=== PATIENT | female | born 1970 | race Caucasian/White ===

== ENCOUNTER → 2017-07-01 | Outpatient (CLI) | payer OTHER ==
[~2017-07-01] MED LIST: BUPR-86 PO; BUSP10TA PO; GABA-826 PO; GABA300C10 PO; HYDR50TA13 PO; INSU100V13 SQ-INSULIN; KETO10TA PO; LEVO200T PO; LEVO200T5 PO; LEVO75TA PO; LISI-167 PO; MECL25TA2 PO; METF10002 PO; MULT-717 PO; SIMV40TA3 PO; SITA100T PO
== END | disposition home or self-care (01) ==
LOC: CFH 11:14
PROVIDERS: ATTEND Family Medicine
DX: Z12.31 Encounter for screening mammogram for malignant neoplasm of breast (principal); Z80.3 Family history of malignant neoplasm of breast
CPT/HCPCS: G0202

== ENCOUNTER 2017-08-02 09:40 | Emergency (ER) | payer OTHER ==
[~2017-08-02] VITALS: Ht 165.1 cm; Wt 115.1 kg
[2017-08-02 13:21] VITALS: BP 122/73
== END 2017-08-02 13:25 | disposition home or self-care (01) ==
LOC: ED 12:22
DX: S13.4XXA Sprain of ligaments of cervical spine, initial encounter (principal); E03.9 Hypothyroidism, unspecified; E78.5 Hyperlipidemia, unspecified; F41.9 Anxiety disorder, unspecified; G47.30 Sleep apnea, unspecified; I10 Essential (primary) hypertension; K21.9 Gastro-esophageal reflux disease without esophagitis; Z90.710 Acquired absence of both cervix and uterus; V89.2XXA Person injured in unspecified motor-vehicle accident, traffic, initial encounter; Y93.89 Activity, other specified; Y92.410 Unspecified street and highway as the place of occurrence of the external cause; Y99.8 Other external cause status
CPT/HCPCS: 72020; 72072; 72110; 72125; 99284

== ENCOUNTER 2017-08-05 15:42 | Emergency (ER) | payer OTHER ==
[~2017-08-05] VITALS: Ht 167.6 cm; Wt 116.4 kg
[2017-08-05 15:49] VITALS: BP 139/88
[2017-08-05] MEDS ORDERED: DIAZEPAM 5 MG TABLET PO ONE (16:30)
[2017-08-05] MEDS ORDERED: ONDANSETRON ODT 4 MG PO ONE (16:30)
[2017-08-05] MEDS ORDERED: OXYcodone/APAP 5/325MG TABLET PO ONE (16:30)
[2017-08-05] MEDS ORDERED: DIAZEPAM 5 MG TABLET ONE (16:32)
[2017-08-05] MEDS ORDERED: ONDANSETRON ODT 4 MG ONE (16:33)
[2017-08-05] MEDS ORDERED: OXYcodone/APAP 5/325MG TABLET ONE (16:33)
== END 2017-08-05 17:58 | disposition home or self-care (01) ==
LOC: ED 17:52
DX: S39.012A Strain of muscle, fascia and tendon of lower back, initial encounter (principal); M51.36 Other intervertebral disc degeneration, lumbar region; I10 Essential (primary) hypertension; E03.9 Hypothyroidism, unspecified; E78.5 Hyperlipidemia, unspecified; E11.9 Type 2 diabetes mellitus without complications; K21.9 Gastro-esophageal reflux disease without esophagitis; F41.9 Anxiety disorder, unspecified
CPT/HCPCS: 72131; 72220; 99284; J7512; Q0162

== ENCOUNTER 2017-12-08 07:46 | Inpatient (IN) | payer OTHER ==
[~2017-12-08] VITALS: Ht 167.6 cm; Wt 117.1 kg
[2017-12-08] MEDS ORDERED: FAMOTIDINE 20 MG/2 ML IVP ONE (08:30)
[2017-12-08] MEDS ORDERED: SODIUM CHLORIDE 0.9% 1,000ML IVBOLUS ONE (08:30)
[2017-12-08] MEDS ORDERED: SODIUM CHLORIDE FLUSH 10ML SYR IVF ONE (08:30)
[2017-12-08] MEDS ORDERED: ONDANSETRON 2MG/ML, 2ML IVPush ONE (08:30)
[2017-12-08] MEDS ORDERED: ONDANSETRON 2MG/ML, 2ML ONE (08:53)
[2017-12-08] MEDS ORDERED: FAMOTIDINE 20 MG/2 ML ONE (08:54)
[2017-12-08 08:58] LABS: BASOPHILS # (AUTO) 0.05 x10^3/uL (0-0.1); BASOPHILS % (AUTO) 1 % (0-1); EOSINOPHILS # (AUTO) 0.28 x10^3/uL (0-0.4); EOSINOPHILS % (AUTO) 2 % (1-7); LYMPHOCYTES # (AUTO) 2.43 x10^3/uL (1-3.4); LYMPHOCYTES % (AUTO) 21 % (22-44); MD NO; MEAN CORPUSCULAR HGB CONC 34.6 g/dL (32.4-35.8); MEAN CORPUSCULAR VOLUME 95.4 fL (80-100); MEAN PLATELET VOLUME 8.7 fL (7.4-10.4); MONOCYTES % (AUTO) 6 % (2-9); NEUTROPHILS # (AUTO) 7.98 x10^3/uL (1.8-6.8); NEUTROPHILS % (AUTO) 70 % (42-75); PLATELET COUNT 215 x10^3/uL (130-400); RED BLOOD COUNT 4.22 x10^6/uL (3.82-5.3); RED CELL DISTRIBUTION WIDTH 13.3 % (9.6-15.2)
[2017-12-08 09:06] LABS: ALBUMIN 3.6 g/dL (3.4-5.0); ANION GAP 9 mmol/L (5-15); CALCIUM 8.2 mg/dL (8.5-10.1); CHLORIDE 109 mmol/L (98-107)
[2017-12-08 09:12] LABS: ALANINE AMINOTRANSFERASE 24 U/L (12-78); ALKALINE PHOSPHATASE 60 U/L (45-117); BILIRUBIN,TOTAL 0.7 mg/dL (0.2-1.0)
[2017-12-08 09:25] LABS: ACETONE, SERUM Trace (10mg/dL) mg/dL (Negative)
[2017-12-08 10:01] LABS: CULTURE INDICATED? YES; MICROSCOPIC INDICATED
[2017-12-08] MEDS ORDERED: MORPHINE SULFATE 4 MG/ML, 1ML IVPush PRN (11:00)
[2017-12-08] MEDS ORDERED: INSU100I32 SQ (11:00)
[2017-12-08] MEDS ORDERED: EMPA1TAB3 PO (11:00)
[2017-12-08] MEDS ORDERED: LISI5TAB7 PO (11:00)
[2017-12-08] MEDS ORDERED: MORPHINE SULFATE 4 MG/ML, 1ML ONE (11:52)
[2017-12-08] MEDS ORDERED: ACETAMINOPHEN 325 MG TABLET PO PRN (12:30)
[2017-12-08] MEDS ORDERED: hydrOXyzine 50MG TABLET PO PRN (12:30)
[2017-12-08] MEDS ORDERED: HYDROcodone/APAP 5/325 TABLET PO PRN (12:30)
[2017-12-08] MEDS ORDERED: DEXTROSE 50%, 50ML SYRINGE IVPush PRN (12:30)
[2017-12-08] MEDS ORDERED: POLYETHYLENE GLYCOL 17 GM PACKET PO PRN (12:30)
[2017-12-08] MEDS ORDERED: DEXTROSE 4 GM TAB.CHEW PO PRN (12:30)
[2017-12-08] MEDS ORDERED: GLUCAGON 1 MG IM PRN (12:30)
[2017-12-08] MEDS ORDERED: TEMPLATE NON-FORMULARY MED. (Insulin Degludec (Tresiba Flextouch U-100) 20 UNITS) SQ SCH (12:30)
[2017-12-08] MEDS ORDERED: DOCUSATE 100 MG CAPSULE PO PRN (12:30)
[2017-12-08] MEDS: CEFTRIAXONE PMX 1GM/50ML 50 ML IV SCH (13:08)
[2017-12-08] MEDS: ENOXAPARIN 40 MG/0.4 ML SQ SCH (13:08)
[2017-12-08] MEDS ORDERED: ENOXAPARIN 40 MG/0.4 ML ONE (13:18)
[2017-12-08] MEDS ORDERED: CEFTRIAXONE PMX 1GM/50ML 50 ML ONE (13:18)
[2017-12-08 13:52] VITALS: BP 122/79
[2017-12-08 13:56] VITALS: BP 122/79
[2017-12-08] MEDS: NS + 20MEQ KCL 1,000 ML IV SCH (14:41)
[2017-12-08] MEDS: INSULIN LISPRO 100 UNITS/ML, PEN SQ-INSULIN SCH ×2 (16:00→19:50)
[2017-12-08] MEDS: morphine SULFATE 10 MG/ML, 1ML IVPush PRN (18:11)
[2017-12-08] MEDS: SIMVASTATIN 40 MG TABLET PO SCH (19:49)
[2017-12-08] MEDS: BUSPIRONE 10 MG TABLET PO SCH (19:49)
[2017-12-08] MEDS: FAMOTIDINE 20 MG TABLET PO SCH (19:49)
[2017-12-08] MEDS: SODIUM CHLORIDE FLUSH 10ML SYR IVF SCH (19:49)
[2017-12-08 20:00] VITALS: BP 103/72
[2017-12-09] MEDS: NS + 20MEQ KCL 1,000 ML IV SCH (00:30)
[2017-12-09 02:00] VITALS: BP 101/73
[2017-12-09] MEDS: morphine SULFATE 10 MG/ML, 1ML IVPush PRN ×2 (02:43→19:32)
[2017-12-09] MEDS: LEVOTHYROXINE 75 MCG TABLET PO SCH (05:48)
[2017-12-09 06:09] LABS: CHLORIDE 112 mmol/L (98-107)
[2017-12-09 06:17] LABS: ANION GAP 8 mmol/L (5-15); CALCIUM 7.3 mg/dL (8.5-10.1); CHOL/HDL RATIO 3.8; CHOLESTEROL, TOTAL 135 mg/dL (140-239); CREATININE 0.45 mg/dL (0.55-1.02); HDL CHOL % 27 % (28-40); HDL CHOLESTEROL (DIRECT) 36 mg/dL (40-60); LDL CHOLESTEROL,CALCULATED 62 mg/dL (54-169); LDL/HDL RATIO 1.7 (0.5-3.0); TRIGLYCERIDES 186 mg/dL (50-200); VLDL CHOLESTEROL 37 mg/dL (0-25)
[2017-12-09] MEDS: INSULIN LISPRO 100 UNITS/ML, PEN SQ-INSULIN SCH ×4 (07:00→21:27)
[2017-12-09 07:30] VITALS: BP 108/72
[2017-12-09] MEDS: FAMOTIDINE 20 MG TABLET PO SCH ×2 (08:51→21:26)
[2017-12-09] MEDS: BUSPIRONE 10 MG TABLET PO SCH ×2 (08:51→21:26)
[2017-12-09] MEDS: BUPROPION SR 150 MG TABLET PO SCH (08:51)
[2017-12-09] MEDS: [UNRECOGNIZED DRUG - OTHER] PO SCH (08:52)
[2017-12-09] MEDS: SODIUM CHLORIDE FLUSH 10ML SYR IVF SCH ×2 (08:52→21:26)
[2017-12-09] MEDS: EMPAGLIFLOZIN PO SCH (08:52)
[2017-12-09] MEDS: LINAGLIPTIN PO SCH (08:52)
[2017-12-09] MEDS: MULTIVITAMINS/MINERALS TABLET PO SCH (08:52)
[2017-12-09] MEDS: LISINOPRIL 5 MG TABLET PO SCH (08:52)
[2017-12-09] MEDS: ONDANSETRON 2MG/ML, 2ML IVPush PRN ×2 (09:41→19:36)
[2017-12-09] MEDS: ENOXAPARIN 40 MG/0.4 ML SQ SCH (11:34)
[2017-12-09] MEDS: CEFTRIAXONE PMX 1GM/50ML 50 ML IV SCH (11:34)
[2017-12-09 13:40] VITALS: BP 103/72
[2017-12-09 19:25] VITALS: BP 125/37
[2017-12-09] MEDS: SIMVASTATIN 40 MG TABLET PO SCH (21:26)
[2017-12-10 03:04] VITALS: BP 98/59
[2017-12-10] MEDS: LEVOTHYROXINE 75 MCG TABLET PO SCH (05:49)
[2017-12-10] MEDS: INSULIN LISPRO 100 UNITS/ML, PEN SQ-INSULIN SCH ×2 (07:00→12:03)
[2017-12-10 08:22] VITALS: BP 114/76
[2017-12-10] MEDS: SODIUM CHLORIDE FLUSH 10ML SYR IVF SCH (08:47)
[2017-12-10] MEDS: [UNRECOGNIZED DRUG - OTHER] PO SCH (08:47)
[2017-12-10] MEDS: EMPAGLIFLOZIN PO SCH (08:47)
[2017-12-10] MEDS: BUPROPION SR 150 MG TABLET PO SCH (08:47)
[2017-12-10] MEDS: LINAGLIPTIN PO SCH (08:47)
[2017-12-10] MEDS: FAMOTIDINE 20 MG TABLET PO SCH (08:47)
[2017-12-10] MEDS: BUSPIRONE 10 MG TABLET PO SCH (08:47)
[2017-12-10] MEDS: MULTIVITAMINS/MINERALS TABLET PO SCH (08:47)
[2017-12-10] MEDS: LISINOPRIL 5 MG TABLET PO SCH (08:47)
[2017-12-10] MEDS: ONDANSETRON 2MG/ML, 2ML IVPush PRN (12:02)
[2017-12-10] MEDS: CEFTRIAXONE PMX 1GM/50ML 50 ML IV SCH (12:03)
[2017-12-10] MEDS: ENOXAPARIN 40 MG/0.4 ML SQ SCH (12:23)
[2017-12-10 13:06] VITALS: BP 111/81
== END 2017-12-10 14:57 | disposition home or self-care (01) | DRG 689 ==
LOC: ED 10:14 → EDIP 10:43 → 4EST 13:31
PROVIDERS: ADMIT Internal Medicine; ATTEND Family Medicine
PROC: 5A09357 Assistance with Respiratory Ventilation, Less than 24 Consecutive Hours, Continuous Positive Airway Pressure (ICD-10-PCS; principal; 2017-12-08)
PROC: 5A09357 Assistance with Respiratory Ventilation, Less than 24 Consecutive Hours, Continuous Positive Airway Pressure (ICD-10-PCS; 2017-12-10)
DX: N39.0 Urinary tract infection, site not specified (principal); K85.00 Idiopathic acute pancreatitis without necrosis or infection; K76.0 Fatty (change of) liver, not elsewhere classified; G62.9 Polyneuropathy, unspecified; E66.01 Morbid (severe) obesity due to excess calories; Z68.41 Body mass index [BMI] 40.0-44.9, adult; E03.9 Hypothyroidism, unspecified; E11.9 Type 2 diabetes mellitus without complications; E78.5 Hyperlipidemia, unspecified; F41.1 Generalized anxiety disorder; G47.30 Sleep apnea, unspecified; G89.29 Other chronic pain; I10 Essential (primary) hypertension; K21.9 Gastro-esophageal reflux disease without esophagitis; Z83.3 Family history of diabetes mellitus; Z79.899 Other long term (current) drug therapy; Z79.1 Long term (current) use of non-steroidal anti-inflammatories (NSAID); Z79.2 Long term (current) use of antibiotics
CPT/HCPCS: 36415; 74018; 76700; 80048; 80053; 80061; 81001; 82010; 82800; 82962; 83690; 83735; 84703; 85025; 87086; 93005; 96361; 96365; 96375; J0696; J1650; J2405; J3480; J1815; J2270; J7030; S0028

== ENCOUNTER → 2018-02-10 | Outpatient (CLI) | payer OTHER, BC ==
[~2018-02-10] MED LIST changes: +EMPA1TAB3 PO; +INSU100I32 SQ; +LISI5TAB7 PO
== END | disposition home or self-care (01) ==
LOC: CFH 14:25
PROVIDERS: ATTEND Internal Medicine
DX: R16.0 Hepatomegaly, not elsewhere classified (principal)
CPT/HCPCS: 74181

== ENCOUNTER → 2018-03-24 | Outpatient (CLI) | payer BC, OTHER | END | disposition home or self-care (01) | LOC: RAD 13:19 | PROVIDERS: ATTEND Obstetrics & Gynecology Gynecology | DX: N83.01 Follicular cyst of right ovary (principal); N88.8 Other specified noninflammatory disorders of cervix uteri; Z90.721 Acquired absence of ovaries, unilateral | CPT/HCPCS: 76830 ==

== ENCOUNTER 2018-04-19 20:54 | Emergency (ER) | payer OTHER ==
[~2018-04-19] VITALS: Ht 167.6 cm; Wt 82.0 kg
[2018-04-19] MEDS ORDERED: LORazepam 2 MG/ML, 1ML ONE ×2 (21:21→21:35)
[2018-04-19] MEDS ORDERED: LORazepam 2 MG/ML, 1ML IVPush ONE (21:30)
[2018-04-19] MEDS ORDERED: SODIUM CHLORIDE FLUSH 10ML SYR IVF ONE (21:30)
[2018-04-19] MEDS ORDERED: SODIUM CHLORIDE 0.9% 1,000ML IVBOLUS ONE ×2 (21:30→22:30)
[2018-04-19 21:54] LABS: ALANINE AMINOTRANSFERASE 25 U/L (12-78); ALBUMIN 4.6 g/dL (3.4-5.0); ANION GAP 9 mmol/L (5-15); CALCIUM 9.4 mg/dL (8.5-10.1); CHLORIDE 107 mmol/L (98-107); CREATININE 0.77 mg/dL (0.55-1.02)
[2018-04-19 21:56] LABS: ALKALINE PHOSPHATASE 51 U/L (45-117); BILIRUBIN,TOTAL 0.5 mg/dL (0.2-1.0); CREATINE KINASE, TOTAL 285 U/L (26-192)
[2018-04-19 21:58] LABS: BASOPHILS # (AUTO) 0.05 x10^3/uL (0-0.1); BASOPHILS % (AUTO) 0 % (0-1); EOSINOPHILS # (AUTO) 0.24 x10^3/uL (0-0.4); EOSINOPHILS % (AUTO) 2 % (1-7); LYMPHOCYTES # (AUTO) 3.46 x10^3/uL (1-3.4); LYMPHOCYTES % (AUTO) 32 % (22-44); MD NO; MEAN CORPUSCULAR HEMOGLOBIN 33.4 pg (27.0-34.8); MEAN CORPUSCULAR HGB CONC 34.1 g/dL (32.4-35.8); MEAN CORPUSCULAR VOLUME 98.1 fL (80-100); MEAN PLATELET VOLUME 9.1 fL (7.4-10.4); MONOCYTES # (AUTO) 0.73 x10^3/uL (0.2-0.8); MONOCYTES % (AUTO) 7 % (2-9); NEUTROPHILS % (AUTO) 58 % (42-75); PLATELET COUNT 256 x10^3/uL (130-400); RED BLOOD COUNT 4.23 x10^6/uL (3.82-5.3); RED CELL DISTRIBUTION WIDTH 13.4 % (9.6-15.2)
[2018-04-19] MEDS ORDERED: POTASSIUM CHLORIDE 20 MEQ TAB.ER.PRT ONE (22:47)
[2018-04-19] MEDS ORDERED: METHOCARBAMOL 750 MG TABLET ONE (22:47)
[2018-04-19] MEDS ORDERED: CYCLOBENZAPRINE 10 MG TABLET ONE (22:57)
[2018-04-19] MEDS ORDERED: CYCLOBENZAPRINE 10 MG TABLET PO ONE (23:00)
[2018-04-19] MEDS ORDERED: METHOCARBAMOL 750 MG TABLET PO ONE (23:00)
[2018-04-19] MEDS ORDERED: POTASSIUM CHLORIDE 20 MEQ TAB.ER.PRT PO ONE (23:00)
[2018-04-19 23:08] VITALS: BP 135/81
== END 2018-04-20 00:21 | disposition home or self-care (01) ==
LOC: ED 23:32
DX: E86.0 Dehydration (principal); M62.830 Muscle spasm of back; E87.6 Hypokalemia; K21.9 Gastro-esophageal reflux disease without esophagitis; I10 Essential (primary) hypertension; E78.5 Hyperlipidemia, unspecified; E03.9 Hypothyroidism, unspecified; E11.649 Type 2 diabetes mellitus with hypoglycemia without coma
CPT/HCPCS: 36415; 70450; 80053; 82550; 82962; 83735; 85025; 93005; 96361; 96374; 99285; J2060; J7030

== ENCOUNTER 2018-04-24 20:55 | Inpatient (IN) | payer OTHER ==
[~2018-04-24] VITALS: Ht 167.6 cm; Wt 113.2 kg
[2018-04-24] MEDS ORDERED: SODIUM CHLORIDE FLUSH 10ML SYR IVF ONE (21:30)
[2018-04-24 22:51] LABS: BASOPHILS # (AUTO) 0.07 x10^3/uL (0-0.1); BASOPHILS % (AUTO) 1 % (0-1); EOSINOPHILS # (AUTO) 0.36 x10^3/uL (0-0.4); EOSINOPHILS % (AUTO) 3 % (1-7); LYMPHOCYTES # (AUTO) 3.81 x10^3/uL (1-3.4); LYMPHOCYTES % (AUTO) 28 % (22-44); MD NO; MEAN CORPUSCULAR HEMOGLOBIN 33.5 pg (27.0-34.8); MEAN CORPUSCULAR HGB CONC 34.5 g/dL (32.4-35.8); MEAN CORPUSCULAR VOLUME 97.2 fL (80-100); MEAN PLATELET VOLUME 9.2 fL (7.4-10.4); MONOCYTES # (AUTO) 0.79 x10^3/uL (0.2-0.8); MONOCYTES % (AUTO) 6 % (2-9); NEUTROPHILS # (AUTO) 8.53 x10^3/uL (1.8-6.8); NEUTROPHILS % (AUTO) 63 % (42-75); PLATELET COUNT 307 x10^3/uL (130-400); RED BLOOD COUNT 4.65 x10^6/uL (3.82-5.3); RED CELL DISTRIBUTION WIDTH 13.4 % (9.6-15.2)
[2018-04-24 23:02] LABS: ALBUMIN 4.9 g/dL (3.4-5.0); ANION GAP 10 mmol/L (5-15); CALCIUM 9.8 mg/dL (8.5-10.1); CHLORIDE 106 mmol/L (98-107)
[2018-04-24 23:08] LABS: ALANINE AMINOTRANSFERASE 26 U/L (12-78); ALKALINE PHOSPHATASE 56 U/L (45-117); BILIRUBIN,TOTAL 0.4 mg/dL (0.2-1.0); CREATININE 0.91 mg/dL (0.55-1.02); T4 (THYROXINE) 11.6 mcg/dL (4.8-13.9); TOTAL PROTEIN 8.4 g/dL (6.4-8.2); TROPONIN I < 0.015 ng/mL (0.000-0.045)
[2018-04-25] VITALS (9 sets, daily range): BP systolic 96–136; BP diastolic 66–88
[2018-04-25] MEDS ORDERED: BISACODYL 10 MG SUPP PR PRN (00:30)
[2018-04-25] MEDS ORDERED: ONDANSETRON 2MG/ML, 2ML IVPush PRN (00:30)
[2018-04-25] MEDS: SIMVASTATIN 40 MG TABLET PO SCH ×4 (00:30→21:00)
[2018-04-25] MEDS ORDERED: hydrOXyzine 50MG TABLET PO PRN (00:30)
[2018-04-25] MEDS ORDERED: POLYETHYLENE GLYCOL 17 GM PACKET PO PRN (00:30)
[2018-04-25] MEDS ORDERED: morphine SULFATE 10 MG/ML, 1ML IVPush PRN (00:30)
[2018-04-25] MEDS ORDERED: NITROGLYCERIN 0.4 MG BOTTLE (25 TABS) SL PRN (00:30)
[2018-04-25] MEDS ORDERED: MAGNESIUM SULFATE PMX 2GM/50ML 50 ML IV ONE (00:30)
[2018-04-25] MEDS: HEPARIN 5,000 UNITS/ML, 1ML SQ SCH ×3 (01:14→17:44)
[2018-04-25 01:15] LABS: HEMOGLOBIN A1C 6.6 % (4.2-6.3)
[2018-04-25 02:02] LABS: MICROSCOPIC NOT IND
[2018-04-25 02:04] LABS: CULTURE INDICATED? NO
[2018-04-25] MEDS: NS + 20MEQ KCL 1,000 ML IV SCH ×3 (04:15→23:07)
[2018-04-25] MEDS: ACETAMINOPHEN 325 MG TABLET PO PRN ×3 (04:33→21:00)
[2018-04-25 05:18] LABS: BASOPHILS # (AUTO) 0.05 x10^3/uL (0-0.1); BASOPHILS % (AUTO) 0 % (0-1); EOSINOPHILS # (AUTO) 0.44 x10^3/uL (0-0.4); EOSINOPHILS % (AUTO) 4 % (1-7); LYMPHOCYTES # (AUTO) 3.78 x10^3/uL (1-3.4); LYMPHOCYTES % (AUTO) 35 % (22-44); MD NO; MEAN CORPUSCULAR HEMOGLOBIN 33.3 pg (27.0-34.8); MEAN CORPUSCULAR HGB CONC 33.8 g/dL (32.4-35.8); MEAN CORPUSCULAR VOLUME 98.4 fL (80-100); MEAN PLATELET VOLUME 9.2 fL (7.4-10.4); MONOCYTES # (AUTO) 0.79 x10^3/uL (0.2-0.8); MONOCYTES % (AUTO) 7 % (2-9); NEUTROPHILS # (AUTO) 5.79 x10^3/uL (1.8-6.8); NEUTROPHILS % (AUTO) 53 % (42-75); PLATELET COUNT 286 x10^3/uL (130-400); RED BLOOD COUNT 4.34 x10^6/uL (3.82-5.3); RED CELL DISTRIBUTION WIDTH 13.6 % (9.6-15.2)
[2018-04-25 05:31] LABS: ALBUMIN 4.3 g/dL (3.4-5.0); ANION GAP 11 mmol/L (5-15); CALCIUM 9.2 mg/dL (8.5-10.1); CHLORIDE 106 mmol/L (98-107)
[2018-04-25 05:37] LABS: ALANINE AMINOTRANSFERASE 25 U/L (12-78); ALKALINE PHOSPHATASE 47 U/L (45-117); BILIRUBIN,TOTAL 0.6 mg/dL (0.2-1.0); CREATININE 0.74 mg/dL (0.55-1.02); TOTAL PROTEIN 7.5 g/dL (6.4-8.2); TROPONIN I < 0.015 ng/mL (0.000-0.045)
[2018-04-25] MEDS ORDERED: LEVOTHYROXINE 75 MCG TABLET PO SCH (06:00)
[2018-04-25] MEDS ORDERED: ASPIRIN 325 MG TABLET EC PO SCH (06:00)
[2018-04-25] MEDS: ASPIRIN 81 MG TABLET EC PO SCH (06:13)
[2018-04-25] MEDS: LISINOPRIL 5 MG TABLET PO SCH (08:10)
[2018-04-25] MEDS: SENNA/DOCUSATE TABLET PO SCH (08:42)
[2018-04-25] MEDS: BUPROPION HCL PO SCH ×2 (08:51→12:20)
[2018-04-25] MEDS ORDERED: REGADENOSON 0.4 MG/5 ML SYRINGE ONE (08:53)
[2018-04-25] MEDS: MULTIVITAMINS/MINERALS TABLET PO SCH (08:54)
[2018-04-25] MEDS: metFORMIN 500 MG TABLET PO SCH ×2 (08:54→21:00)
[2018-04-25] MEDS: BUSPIRONE 10 MG TABLET PO SCH ×2 (08:54→21:00)
[2018-04-25] MEDS ORDERED: LISINOPRIL 5 MG TABLET PO SCH (09:00)
[2018-04-25 11:44] LABS: TROPONIN I < 0.015 ng/mL (0.000-0.045)
[2018-04-25] MEDS ORDERED: LORazepam 2 MG/ML, 1ML ONE (15:24)
[2018-04-25] MEDS: Insulin Degludec (Tresiba Flextouch U-100) SQ SCH (21:00)
[2018-04-26] MEDS: HEPARIN 5,000 UNITS/ML, 1ML SQ SCH ×3 (01:35→17:24)
[2018-04-26 02:20] VITALS: BP 108/76
[2018-04-26] MEDS: ASPIRIN 81 MG TABLET EC PO SCH (06:17)
[2018-04-26 07:27] VITALS: BP_SYST 127; BP_SYST 130; BP_SYST 131; BP_DIAS 85; BP_DIAS 87; BP_DIAS 89
[2018-04-26] MEDS: MULTIVITAMINS/MINERALS TABLET PO SCH (08:17)
[2018-04-26] MEDS: BUSPIRONE 10 MG TABLET PO SCH ×2 (08:18→21:00)
[2018-04-26] MEDS: metFORMIN 500 MG TABLET PO SCH ×2 (08:18→21:00)
[2018-04-26] MEDS: LISINOPRIL 5 MG TABLET PO SCH (08:18)
[2018-04-26] MEDS: SENNA/DOCUSATE TABLET PO SCH (08:19)
[2018-04-26] MEDS ORDERED: LEVOTHYROXINE 100 MCG INJ IVPush SCH (09:00)
[2018-04-26] MEDS ORDERED: OMEP40CA6 PO (09:41)
[2018-04-26] MEDS: ACETAMINOPHEN 325 MG TABLET PO PRN ×2 (10:01→17:24)
[2018-04-26] MEDS ORDERED: LEVO200T5 PO (10:37)
[2018-04-26 11:29] LABS: ANION GAP 7 mmol/L (5-15); CALCIUM 8.9 mg/dL (8.5-10.1); CHLORIDE 107 mmol/L (98-107); CREATININE 0.71 mg/dL (0.55-1.02)
[2018-04-26] MEDS: PANTOPROZOLE 40MG TABLET PO SCH (11:55)
[2018-04-26 13:30] VITALS: BP 108/75
[2018-04-26 19:56] VITALS: BP 96/71
[2018-04-26 20:02] VITALS: BP 104/72
[2018-04-26 20:04] VITALS: BP 118/80
[2018-04-26] MEDS: Insulin Degludec (Tresiba Flextouch U-100) SQ SCH (20:58)
[2018-04-26] MEDS: SIMVASTATIN 40 MG TABLET PO SCH (21:01)
[2018-04-27 02:02] VITALS: BP 111/77
[2018-04-27] MEDS: HEPARIN 5,000 UNITS/ML, 1ML SQ SCH ×2 (02:45→09:30)
[2018-04-27 05:38] LABS: FREE T4 (FREE THYROXINE) 1.08 ng/dL (0.76-1.46)
[2018-04-27] MEDS ORDERED: LEVOTHYROXINE 200 MCG TABLET PO SCH (06:00)
[2018-04-27] MEDS: ASPIRIN 81 MG TABLET EC PO SCH (06:22)
[2018-04-27 07:17] VITALS: BP 94/68
[2018-04-27] MEDS: MULTIVITAMINS/MINERALS TABLET PO SCH (08:08)
[2018-04-27] MEDS: metFORMIN 500 MG TABLET PO SCH (08:09)
[2018-04-27] MEDS: LISINOPRIL 5 MG TABLET PO SCH (08:10)
[2018-04-27] MEDS: BUSPIRONE 10 MG TABLET PO SCH (08:10)
[2018-04-27] MEDS: PANTOPROZOLE 40MG TABLET PO SCH (08:10)
[2018-04-27] MEDS: BUPROPION HCL PO SCH (08:10)
[2018-04-27] MEDS: SENNA/DOCUSATE TABLET PO SCH (08:13)
[2018-04-27] MEDS ORDERED: LEVO200T5 PO (08:40)
== END 2018-04-27 12:24 | disposition home or self-care (01) | DRG 645 ==
LOC: ED 21:43 → EDIP 23:57 → 4WST 04-25 00:14 → DCLOUNGE 04-27 12:02
PROVIDERS: ADMIT Internal Medicine; ATTEND Internal Medicine
PROC: 5A09357 Assistance with Respiratory Ventilation, Less than 24 Consecutive Hours, Continuous Positive Airway Pressure (ICD-10-PCS; principal; 2018-04-26)
DX: E03.9 Hypothyroidism, unspecified (principal); D72.829 Elevated white blood cell count, unspecified; E78.5 Hyperlipidemia, unspecified; E86.0 Dehydration; E87.5 Hyperkalemia; F12.90 Cannabis use, unspecified, uncomplicated; F41.1 Generalized anxiety disorder; M54.9 Dorsalgia, unspecified; R00.1 Bradycardia, unspecified; G47.33 Obstructive sleep apnea (adult) (pediatric); E11.40 Type 2 diabetes mellitus with diabetic neuropathy, unspecified; R07.89 Other chest pain; G89.29 Other chronic pain; I10 Essential (primary) hypertension; K21.9 Gastro-esophageal reflux disease without esophagitis; Z79.4 Long term (current) use of insulin; Z83.3 Family history of diabetes mellitus; Z87.891 Personal history of nicotine dependence; Z90.710 Acquired absence of both cervix and uterus
CPT/HCPCS: 36415; 70450; 71045; 78452; 80053; 80069; 81003; 82140; 82962; 83036; 83735; 83880; 84436; 84439; 84443; 84481; 84484; 84703; 85025; 93005; 93017; 93306; 93880; 95812; 95816; 99285; J1644; J2405; J2785; J3480; A9502; C9898; J3475

== ENCOUNTER → 2020-02-26 | Outpatient (CLI) | payer BC, MEDICAID ==
[~2020-02-26] MED LIST changes: -HYDR50TA13 PO; +HYDR50TA99 PO; +OMEP40CA42 PO; +SIMV40TA20 PO; -SIMV40TA3 PO
== END | disposition home or self-care (01) ==
LOC: CVU 09:59
PROVIDERS: ATTEND Internal Medicine Cardiovascular Disease
DX: I51.7 Cardiomegaly (principal); Q25.46 Tortuous aortic arch; I10 Essential (primary) hypertension; E78.5 Hyperlipidemia, unspecified; E11.9 Type 2 diabetes mellitus without complications
CPT/HCPCS: 93306